=== PATIENT | male | born 1970 | race Caucasian/White ===

== ENCOUNTER 2019-10-29 15:34 | Emergency (ER) | payer BC ==
--- NOTE | 2019-10-29 16:00 | EDM.PDOC ---
ED HPI GENERAL MEDICAL PROBLEM - General Chief Complaint: Cardiovascular Problem Stated Complaint: HIGH BP Time Seen by Provider: 10/29/19 15:36 Source of Information: Reports: Patient History Limitations: Reports: No Limitations - History of Present Illness INITIAL COMMENTS - FREE TEXT/NARRATIVE: HISTORY AND PHYSICAL: History of present illness: Patient is a 49-year-old male who presents to the emergency room with complaints of hypertension. He states that he is new to the area and has recently been having some migraine headaches and concerned that his blood pressure is high. At his last annual physical in April he was told that his blood pressure was elevated but was not initiated on any antihypertensives. Approximately 3 to 4 days ago he did buy a blood pressure cuff due to his headache he has had blood pressures of 180s over 110's. [facility] but since [facility] is [facility] to the area they were unable to get him in as I do not have his transferred medical rec ords, they recommended he come to the emergency room. He is currently asymptomatic. Patient denies any fever, chills, headache, change in vision, syncope or near syncope. Denies any chest pain, back pain, shortness of breath or cough. Denies any abdominal pain, nausea, vomiting, diarrhea, constipation or dysuria. Has not noted any blood in urine or stool. Patient has been eating and drinking appropriately. Review of systems: As per history of present illness and below otherwise all systems reviewed and negative. Past medical history: As per history of present illness and as reviewed below otherwise noncontributory. Surgical history: As per history of present illness and as reviewed below otherwise noncontributory. Social history: See social history for further information Family history: As per history of present illness and as reviewed below otherwise noncontributory. Physical exam: General: Well-developed and well-nourished 49-year-old male. Alert and oriented. Nontoxic-appearing and in no acute distress. HEENT: Atraumatic, normocephalic, pupils equal and reactive bilaterally, negative for conjunctival pallor or scleral icterus, mucous membranes moist, TMs normal bilaterally, throat clear, neck supple, nontender, trachea midline. No drooling or trismus noted. No meningeal signs. No hot potato voice noted. Lungs: Clear to auscultation, breath sounds equal bilaterally, chest nontender. Heart: S1S2, regular rate and rhythm without overt murmur Abdomen: Soft, obese, nontender. Skin: Intact, warm, dry. No lesions or rashes noted. Extremities: Atraumatic, moves all extremities per self without difficulty or deficits, negative for cords or calf pain. Neurovascular unremarkable. Neuro: Awake, alert, oriented. Cranial nerves II through XII unremarkable. Cerebellum unremarkable. Motor and sensory unremarkable throughout. Exam nonfocal. Notes: Lab work shows a low potassium, replacement therapy given and prescribed. Patient continues to be asymptomatic while here. We discussed signs and symptoms that would prompt him to return to the emergency room. [facility] as he already has arranged for reevaluation. Follow- up, medication and supportive care measures were reviewed and discussed. Voices understanding and is agreeable to plan of care. Denies any further questions or concerns at this time. Diagnostics: CBC, CMP, Troponin, EKG, CXR Therapeutics: Lisinopril, K-Dur Prescription: Lisinopril, K-Dur Impression: Uncontrolled hypertension Hypokalemia Plan: 1. You can start your lisinopril once daily. 1 side effect but I do want you to monitor for is a cough, should you develop this you do need to inform your primary care provider as he may want to switch you to a different medication. Should you feel lightheaded, dizzy, or your blood pressure readings are low - please hold your next dose of the blood pressure medication and follow-up with your primary care provider immediately. 2. Your lab work, EKG and chest x-ray were within normal limits, with the exception of your potassium being low (take replacement and have this re- checked). A copy of these results are in your discharge packet. Please bring this to your next [facility] appointment. 3. Return to the emergency room as needed and as discussed. Definitive disposition and diagnosis as appropriate pending reevaluation and review of above. - Related Data Allergies Allergy/AdvReac Type Severity Reaction Status Date / Time lady emy daniel Allergy Swelling Uncoded 10/29/19 15:58 Home Meds: Home Meds Potassium Chloride 20 meq PO BID 5 Days #10 tab.er.prt 10/29/19 [Rx] lisinopriL [Lisinopril] 10 mg PO DAILY 30 Days #30 tablet 10/29/19 [Rx] ED ROS GENERAL - Review of Systems Review Of Systems: Comprehensive ROS is negative, except as noted in HPI. ED EXAM, GENERAL - Physical Exam Exam: See Below (See dictation) Course - Vital Signs Last Recorded V/S: Last Vital Signs Temp 96.2 F L 10/29/19 15:52 Pulse 82 10/29/19 16:24 Resp 20 10/29/19 16:24 BP 156/92 H 10/29/19 16:24 Pulse Ox 93 L 10/29/19 16:24 - Orders/Labs/Meds Orders: Active Orders 24 hr Category Date Time Status EKG Documentation Completion [RC] STAT Care 10/29/19 15:57 Active Chest 1V Frontal [CR] Stat Exams 10/29/19 16:11 Taken Potassium Chloride [Klor-Con M20] Med 10/29/19 17:04 Once 40 meq PO ONETIME ONE Labs: Laboratory Tests 10/29/19 10/29/19 Range/Units 16:22 16:22 WBC 9.64 (4.0-11.0) K/uL RBC 5.04 (4.50-5.90) M/uL Hgb 15.4 (13.0-17.0) g/dL Hct 44.6 (38.0-50.0) % MCV 88.5 (80.0-98.0) fL MCH 30.6 (27.0-32.0) pg MCHC 34.5 (31.0-37.0) g/dL RDW Std Deviation 41.5 (28.0-62.0) fl RDW Coeff of Clem 13 (11.0-15.0) % Plt Count 283 (150-400) K/uL MPV 10.10 (7.40-12.00) fL Neut % (Auto) 55.0 (48.0-80.0) % Lymph % (Auto) 34.8 (16.0-40.0) % Thomas % (Auto) 7.5 (0.0-15.0) % Eos % (Auto) 2.0 (0.0-7.0) % Baso % (Auto) 0.7 (0.0-1.5) % Neut # (Auto) 5.3 (1.4-5.7) K/uL Lymph # (Auto) 3.4 H (0.6-2.4) K/uL Thomas # (Auto) 0.7 (0.0-0.8) K/uL Eos # (Auto) 0.2 (0.0-0.7) K/uL Baso # (Auto) 0.1 (0.0-0.1) K/uL Nucleated RBC % 0.0 /100WBC Nucleated RBCs # 0 K/uL Sodium 139 (136-148) mmol/L Potassium 3.0 L (3.5-5.1) mmol/L Chloride 103 (98-107) mmol/L Carbon Dioxide 24.6 (21.0-32.0) mmol/L BUN 8 (7.0-18.0) mg/dL Creatinine 0.7 L (0.8-1.3) mg/dL Est Cr Clr Drug Dosing 126.25 mL/min Estimated GFR (MDRD) > 60.0 ml/min Glucose 119 H (74-106) mg/dL Calcium 8.3 L (8.5-10.1) mg/dL Total Bilirubin 0.5 (0.2-1.0) mg/dL AST 20 (15-37) IU/L ALT 49 (14-63) IU/L Alkaline Phosphatase 90 (46-116) U/L Troponin I <0.050 (0.000-0.056) ng/mL Total Protein 7.5 (6.4-8.2) g/dL Albumin 3.8 (3.4-5.0) g/dL Globulin 3.7 (2.6-4.0) g/dL Albumin/Globulin Ratio 1.0 (0.9-1.6) Meds: Medications Discontinued Medications Generic Name Dose Route Start Last Admin Trade Name Freq PRN Reason Stop Dose Admin Lisinopril 10 mg 10/29/19 16:12 10/29/19 16:23 Prinivil PO 10/29/19 16:13 10 mg ONETIME ONE Administration Departure - Departure Time of Disposition: 17:06 Disposition: Home, Self-Care 01 Clinical Impression: Uncontrolled hypertension, Hypokalemia Prescriptions: lisinopriL [Lisinopril] 10 mg PO DAILY 30 Days #30 tablet Potassium Chloride 20 meq PO BID 5 Days #10 tab.er.prt Instructions: Hypertension, Adult, [id number] Referrals: PCP,None [Primary Care Provider] - Forms: ED Department Discharge Additional Instructions: The following information is given to patients seen in the emergency department who are being discharged to home. This information is to outline your options for follow-up care. We provide all patients seen in our emergency department with a follow-up referral. The need for follow-up, as well as the timing and circumstances, are variable depending upon the specifics of your emergency department visit. If you don't have a primary care physician on staff, we will provide you with a referral. We always advise you to contact your personal physician following an emergency department visit to inform them of the circumstance of the visit and for follow-up with them and/or the need for any referrals to a consulting specialist. The emergency department will also refer you to a specialist when appropriate. This referral assures that you have the opportunity for follow-up care with a specialist. All of these measure are taken in an effort to provide you with optimal care, which includes your follow-up. Under all circumstances we always encourage you to contact your private physician who remains a resource for coordinating your care. When calling for follow-up care, please make the office aware that this follow-up is from your recent emergency room visit. If for any reason you are refused follow-up, please contact the [facility] Emergency Department at and asked to speak to the emergency department charge nurse. [facility] [address] [place], [place] [id number] [place] [address] 1. You can start your lisinopril once daily. 1 side effect but I do want you to monitor for is a cough, should you develop this you do need to inform your [facility] care provider as he may want to switch you to a different medication. Should you feel lightheaded, dizzy, or your blood pressure readings are low - please hold your next dose of the blood pressure medication and follow-up with your primary care provider immediately. 2. Your lab work, EKG and chest x-ray were within normal limits, with the exception of your potassium being low (take replacement and have this re- checked). A copy of these results are in your discharge packet. Please bring this to your next [facility]. 3. Return to the emergency room as needed and as discussed. Sepsis Event Note (ED) - Evaluation Sepsis Screening Result: No Definite Risk - Focused Exam Vital Signs: Vital Signs Temp Pulse Resp BP BP Pulse Ox 10/29/19 16:24 82 20 156/92 H 93 L 10/29/19 16:23 156/92 H 10/29/19 15:52 96.2 F L 92 20 146/92 H 95 - My Orders Last 24 Hours: My Active Orders 10/29/19 15:57 EKG Documentation Completion [RC] STAT 10/29/19 16:11 Chest 1V Frontal [CR] Stat 10/29/19 17:04 Potassium Chloride [Klor-Con M20] 40 meq PO ONETIME ONE - Assessment/Plan Last 24 Hours: My Active Orders 10/29/19 15:57 EKG Documentation Completion [RC] STAT 10/29/19 16:11 Chest 1V Frontal [CR] Stat 10/29/19 17:04 Potassium Chloride [Klor-Con M20] 40 meq PO ONETIME ONE
[2019-10-29] MEDS ORDERED: Lisinopril 10 MG Tab PO ONE (16:12)
[2019-10-29 16:58] LABS: BLOOD UREA NITROGEN,BUN 8 mg/dL (7.0-18.0); CARBON DIOXIDE,CO2 24.6 mmol/L (21.0-32.0); CHLORIDE,CL 103 mmol/L (98-107); GLUCOSE RANDOM 119 mg/dL (74-106); SODIUM,NA 139 mmol/L (136-148)
[2019-10-29] MEDS ORDERED: Potassium Chloride 20 MEQ Tab.ER PO ONE (17:04)
--- NOTE | 2019-10-29 17:15 | CR ---
Chest: Portable view of the chest was obtained. Comparison: No previous chest imaging. Heart size and mediastinum are normal. Lungs are clear with no acute parenchymal change. Bony structures are grossly intact. Impression: 1. Nothing acute is seen on portable chest x-ray. Diagnostic code #1 This report was dictated in MDT
== END 2019-10-29 17:29 | disposition home or self-care (01) ==
LOC: MW.ED 15:34
DX: I10 Essential (primary) hypertension (principal); E87.6 Hypokalemia; Z79.899 Other long term (current) drug therapy
CPT/HCPCS: 36415; 71045; 80053; 84484; 85025; 93005; 99284; A9270